=== PATIENT | female | born 1965 | race Caucasian/White ===

== ENCOUNTER 2024-10-04 11:01 | Emergency (ER) | payer MEDICARE, MEDICAID ==
[~2024-10-04] VITALS: Ht 142.2 cm; Wt 100.0 kg
[~2024-10-04 11:01] MED LIST: ALBU18HF2 IH; ASPI-1265 PO; CALC-965 PO; CETI10TA14 PO; CHOL400T58 PO; DIAZ10TA4 PO; FERR324T4 PO; FOLI0.4T14 PO; FURO-150 PO; Vitamin B12 PO
[2024-10-04 11:44] LABS: BASOPHILS % (AUTO) 0.9 % (0-1); EOSINOPHILS # (AUTO) 0.1 X10'3 (0-0.9); EOSINOPHILS % (AUTO) 1.4 % (0-6); HEMATOCRIT 30.8 % (35.0-45.0); LYMPHOCYTES # (AUTO) 0.6 X10'3 (1.1-4.8); LYMPHOCYTES % (AUTO) 11.5 % (21-51); MEAN CORPUSCULAR HEMOGLOBIN 37.1 PG (27.0-31.0); MEAN CORPUSCULAR HGB CONC 35.8 g/dL (33.0-36.5); MEAN CORPUSCULAR VOLUME 103.5 FL (78-98); MEAN PLATELET VOLUME 7.5 FL (7.4-10.4); MONOCYTES # (AUTO) 0.2 X10'3 (0-0.9); MONOCYTES % (AUTO) 4.8 % (2-12); NEUTROPHILS # (AUTO) 4.2 X10'3 (1.8-7.7); NEUTROPHILS % (AUTO) 81.4 % (42-75); PLATELET COUNT 214 X10'3 (140-440); RED BLOOD COUNT 2.97 X10'6 (4.20-5.60); WHITE BLOOD COUNT 5.1 X10'3 (4.5-11.0)
[2024-10-04 11:49] LABS: ALBUMIN 2.9 G/DL (3.4-5.0); ANION GAP 10 (8-16); BLOOD UREA NITROGEN 16 MG/DL (7-18); BUN/CREATININE RATIO 13.7 (10.0-20.0); CALCIUM 8.9 MG/DL (8.5-10.1); CHLORIDE 104 MMOL/L (99-107); CREATININE 1.17 MG/DL (0.40-0.90); GLUCOSE 120 MG/DL (70-104); POTASSIUM 3.2 MMOL/L (3.5-5.1); SODIUM 143 MMOL/L (135-145); TOTAL CARBON DIOXIDE 28.8 MMOL/L (24-32); eCRCL 30 ML/MIN; eGFR 47 ML/MIN
[2024-10-04 13:42] LABS: PRO BRAIN NATRIURETIC PEPTIDE 1355 PG/ML (0-125)
[2024-10-04 16:58] LABS: BILIRUBIN,URINE NEGATIVE (Neg); COLOR,URINE YELLOW (Yellow); GLUCOSE, URINE NEGATIVE (Neg); KETONES,URINE NEGATIVE (Neg); LEUKOCYTE ESTERASE ,URINE NEGATIVE (Neg); NITRITES, URINE NEGATIVE (Neg); OCCULT BLOOD,URINE TRACE-INTACT (Neg); PROTEIN,URINE NEGATIVE (Neg); UROBILINOGEN,URINE 0.2 E.U/dL (0.2-1.0)
[2024-10-04 17:00] LABS: UA COLLECTION TYPE CLN CATCH MIDSTREAM
[2024-10-04 17:06] LABS: BACTERIA,URINE 4+ /HPF (Neg); CLARITY,URINE SLIGHTLY CLOUDY (Clear); SQUAMOUS EPITHELIAL CELL,UR FEW /LPF (FEW); WBC,URINE 0-4 /HPF (0-4)
[2024-10-04 17:07] LABS: MUCUS STRANDS FEW /LPF (Neg); TRANSITIONAL EPI CELLS,URINE FEW /HPF
[2024-10-04 18:01] VITALS: BP 109/50; PULSE 79; RESP 18; TEMP 99; O2SAT 96
== END 2024-10-04 18:07 | disposition home or self-care (01) ==
LOC: ER 11:02
DX: R06.02 Shortness of breath (principal); N18.9 Chronic kidney disease, unspecified; I50.9 Heart failure, unspecified; Z79.82 Long term (current) use of aspirin
CPT/HCPCS: 36415; 71045; 71275; 80048; 81001; 83605; 83880; 84145; 84484; 85025; 87040; 87088; 99285

== ENCOUNTER 2024-10-23 09:04 | Emergency (ER) | payer MEDICARE, MEDICAID ==
[~2024-10-23] VITALS: Ht 165.1 cm; Wt 97.7 kg
[2024-10-23 09:07] VITALS: TEMP 98.5
[2024-10-23] MEDS: ondansetron/PF 4mg/2ml inj IV ONE (11:05)
[2024-10-23] MEDS: ondansetron/PF 4mg/2ml inj IM ONE (11:06)
[2024-10-23] MEDS: normal saline 1000ml 1,000 ML IV ONE (11:06)
[2024-10-23 12:52] VITALS: BP 107/80; PULSE 87; RESP 17; O2SAT 98
== END 2024-10-23 12:56 | disposition home or self-care (01) ==
LOC: ER 09:05
DX: T50.991A Poisoning by other drugs, medicaments and biological substances, accidental (unintentional), initial encounter (principal); R11.2 Nausea with vomiting, unspecified; Z79.82 Long term (current) use of aspirin; Z79.899 Other long term (current) drug therapy; Y92.89 Other specified places as the place of occurrence of the external cause
CPT/HCPCS: 93005; 96361; 96374; 99283; A4615; J2405; J7030